=== PATIENT | female | born 1945 | race African-American/Black ===

== ENCOUNTER → 2017-05-04 | Outpatient (CLI) | payer MEDICARE, MEDICAID ==
[~2017-05-04] MED LIST: AMLO5TAB2 PO; ASPI-496 PO; ATOR20TA9 PO; CARV12.543 PO; CARV3.1212 PO; DONE10TA56 PO; FLUO10CA13 PO; HYDR-3237 PO; HYDR-3307 PO; ISOS30TA21 PO; LISI-167 PO; LISI-170 PO; UNKNOWN BP MED PO
== END | disposition home or self-care (01) ==
LOC: RAD 14:39
PROVIDERS: ATTEND Family Medicine
DX: J32.0 Chronic maxillary sinusitis (principal); F03.90 Unspecified dementia, unspecified severity, without behavioral disturbance, psychotic disturbance, mood disturbance, and anxiety
CPT/HCPCS: 70551

== ENCOUNTER → 2018-01-11 | Outpatient (CLI) | payer MEDICARE, MEDICAID ==
[~2018-01-11] MED LIST changes: +REGADENOSON 0.4 MG/5 ML SYRINGE ONE
== END ==
LOC: RAD 10:18
PROVIDERS: ATTEND Physician Assistant
DX: R07.89 Other chest pain (principal)
CPT/HCPCS: 78452; 93017; A9502; J2785

== ENCOUNTER 2018-10-28 01:27 | Emergency (ER) | payer MEDICARE, MEDICAID ==
[~2018-10-28] VITALS: Ht 165.1 cm; Wt 80.0 kg
[~2018-10-28 01:27] MED LIST changes: +AMLO-150 PO; -AMLO5TAB2 PO; +ATOR20TA37 PO; -ATOR20TA9 PO; -REGADENOSON 0.4 MG/5 ML SYRINGE ONE
[2018-10-28] MEDS ORDERED: ONDANSETRON 2MG/ML, 2ML ONE (01:40)
--- NOTE | 2018-10-28 01:40 | NUR ---
NOLBERTO. REPORT RECEIVED FROM [place]. PT HAD [facility] AT [facility] AROUND 1AM TONIGHT. PT HAS 2CM LAC ON LEFT FOREHEAD. NO ACTIVE BLEEDING ON ARRIVAL. NO LOC. PT C/O LEFT HIP PAIN. PT HAS SEVERE DEMENTIA. PT IS NOT ABLE TO COMMUNICATE WELL. PT'S SON AT BEDSIDE. EDMD AT BEDSIDE TO EXPLAIN POC AT THIS TIME. ALL MONITORS IN PLACE. CALL LIGHT WITHIN REACH.
[2018-10-28] MEDS ORDERED: MORPHINE SULFATE 4 MG/ML, 1ML ONE (01:41)
[2018-10-28] MEDS ORDERED: L.E.T SOLUTION TP ONE ×2 (01:45→02:00)
[2018-10-28] MEDS ORDERED: ONDANSETRON 2MG/ML, 2ML IVPush ONE (02:00)
[2018-10-28] MEDS ORDERED: MORPHINE SULFATE 4 MG/ML, 1ML IVPush PRN (02:00)
[2018-10-28] MEDS ORDERED: SODIUM CHLORIDE FLUSH 10ML SYR IVF ONE (02:00)
--- NOTE | 2018-10-28 02:01 | NUR ---
PT MEDICATED PER [facility]. PT TOLERATED WELL. PT'S SON AT BEDSIDE. RESPS EVEN AND UNLABORED.
[2018-10-28] MEDS ORDERED: CALC250T PO (02:17)
[2018-10-28] MEDS ORDERED: DIVA-59 PO (02:19)
[2018-10-28] MEDS ORDERED: FURO-93 PO (02:20)
[2018-10-28] MEDS ORDERED: LISI-170 PO (02:21)
[2018-10-28] MEDS ORDERED: MEMA10TA PO (02:22)
[2018-10-28] MEDS ORDERED: MAGN400O7 PO (02:24)
[2018-10-28] MEDS ORDERED: POTA10CA PO (02:25)
[2018-10-28] MEDS ORDERED: AMLO2.5T2 PO (02:25)
[2018-10-28] MEDS ORDERED: MIRT15TA3 PO (02:26)
[2018-10-28] MEDS ORDERED: TYLENOL (02:28)
[2018-10-28] MEDS ORDERED: CHOL500062 PO (02:29)
--- NOTE | 2018-10-28 02:36 | NUR ---
PA APPLIED DERMABOND ON LAC AT THIS TIME. PT TOLERATED WELL.
--- NOTE | 2018-10-28 03:36 | NUR ---
PT RESTING IN GURNEY. RESPS EVEN AND UNLABORED. PT'S SON AT BEDSIDE. ALL MONITORS IN PLACE. CALL LIGHT WITHIN REACH. AWAITING DISPO.
--- NOTE | 2018-10-28 03:56 | NUR ---
ERP AT BEDSIDE FOR RE-EVALUATION.
--- NOTE | 2018-10-28 04:04 | NUR ---
PATIENT FOR DISCHARGE. REPORT GIVEN TO RN AT [facility]. [facility] WILL BE CALLED FOR TRANSPORT.
--- NOTE | 2018-10-28 05:05 | NUR ---
[facility] HERE TO TAKE PATIENT TO [facility].
[2018-10-28 05:07] VITALS: BP 136/83
== END 2018-10-28 05:09 | disposition home or self-care (01) ==
LOC: ED 02:48
DX: S01.81XA Laceration without foreign body of other part of head, initial encounter (principal); S70.02XA Contusion of left hip, initial encounter; S09.90XA Unspecified injury of head, initial encounter; R41.0 Disorientation, unspecified; I10 Essential (primary) hypertension; I48.91 Unspecified atrial fibrillation; F17.200 Nicotine dependence, unspecified, uncomplicated; M19.90 Unspecified osteoarthritis, unspecified site; G89.29 Other chronic pain; W18.30XA Fall on same level, unspecified, initial encounter; Y93.89 Activity, other specified; Y92.009 Unspecified place in unspecified non-institutional (private) residence as the place of occurrence of the external cause; Y99.8 Other external cause status
CPT/HCPCS: 12011; 70450; 73502; 96374; 96375; 99284; J2405